=== PATIENT | female | born 1940 | race Caucasian/White ===

== ENCOUNTER 2020-04-16 21:35 | Inpatient (IN) ==
[2020-04-16 22:01] LABS: Basophils # 0.1 K/mcL (0.0-0.2); Basophils % 0.4 %; Hematocrit 43.9 % (35.3-44.9); Hemoglobin 14.1 g/dL (11.5-15.4); Lymphocytes % 4.8 %; Mean Corpuscular HGB Conc 32.1 g/dL (31.6-35.5); Mean Corpuscular Hemoglobin 30.5 pg (28.0-33.3); Mean Corpuscular Volume 94.8 fL (83.0-100.0); Mean Platelet Volume 9.6 fL (9.4-12.4); Monocytes # 1.8 K/mcL (0.0-1.3); Monocytes % 8.4 %; Neutrophils # 17.8 K/mcL (1.6-8.9); Platelet Count 316 K/mcL (140-400); Red Blood Count 4.63 M/mcL (3.82-4.97); Red Cell Distribution Width 13.2 % (11.5-14.5); Segmented Neutrophils % 85.4 %; White Blood Count 20.8 K/mcL (4.3-11.1)
[2020-04-16 22:08] LABS: INR 1.2; Prothrombin Time 14.2 Seconds (9.4-12.1)
[2020-04-16 22:11] LABS: Activated Partial Thrombo Time 29.2 Seconds (26.0-36.0)
[2020-04-16 22:17] LABS: Alanine Aminotransferase 10 Units/L (7-52); Albumin 3.7 g/dL (3.5-5.7); Albumin/Globulin Ratio 0.9 (1.1-2.2); Alkaline Phosphatase 83 Units/L (34-104); Aspartate Amino Transferase 14 Units/L (13-39); BUN/Creatinine Ratio 19 (6-26); Blood Urea Nitrogen 20 mg/dL (8-23); Calcium 9.1 mg/dL (8.6-10.3); Carbon Dioxide 28 mEq/L (23-29); Chloride 104 mEq/L (98-107); Globulin 3.9 g/dL (2.4-3.5); Glucose 115 mg/dL (70-105); Osmolality,Calculated 296 (280-300); Potassium 3.5 mEq/L (3.5-5.1); Sodium 141 mEq/L (136-145); Total Protein 7.6 g/dL (6.4-8.9); eGFR For African Americans > 60 (> 60); eGFR For Non-African Americans 50 (> 60)
[2020-04-16 23:01] LABS: Bilirubin,Urine Negative (Negative); Blood,Urine Small (Negative); Clarity,Urine Cloudy (Clear); Color,Urine Yellow (Yellow); Glucose,Urine (UA) Normal (Normal); Ketones,Urine Trace mg/dL (Negative); Leukocyte Esterase,Urine Large (Negative); Nitrite,Urine Positive (Negative); PH,Urine 6.5 pH Units (5.0-8.0); Protein,Urine 100 mg/dL (Neg-Trace); Specific Gravity,Urine 1.025 (1.010-1.025); Urobilinogen,Urine Normal (Normal)
[2020-04-16 23:08] LABS: Bacteria,Urine Many per hpf (None-Few); WBC,Urine TNTC per hpf (0-3)
[2020-04-16 23:10] LABS: Mucus,Urine Few per lpf (None-Few); Squamous Epithelial Cell,Urine Moderate per hpf (None-Few)
[2020-04-17] MEDS ORDERED: Sennosides/Docusate Sodium TABLET PO PRN (00:48)
[2020-04-17] MEDS ORDERED: *HR* LORazepam 0.5 MG TABLET PO PRN (00:48)
[2020-04-17] MEDS ORDERED: Naloxone 0.4 MG/ML INJ IVP PRN (00:48)
[2020-04-17] MEDS ORDERED: Ondansetron ODT 4 MG TAB.RAPDIS SL PRN (00:48)
[2020-04-17] MEDS: Acetaminophen 325 MG TABLET PO PRN ×3 (01:28→22:59)
[2020-04-17] MEDS: 0.9 % Sodium Chloride 1,000 ML IVC SCH ×2 (01:36→09:43)
[2020-04-17 06:13] LABS: Basophils # 0.1 K/mcL (0.0-0.2); Basophils % 0.3 %; Eosinophils % 0.1 %; Hematocrit 38.7 % (35.3-44.9); Hemoglobin 12.3 g/dL (11.5-15.4); Immature Granulocytes % 0.9 % (0-4); Lymphocytes # 1.6 K/mcL (0.6-4.6); Mean Corpuscular HGB Conc 31.8 g/dL (31.6-35.5); Mean Corpuscular Volume 94.4 fL (83.0-100.0); Mean Platelet Volume 10.6 fL (9.4-12.4); Monocytes % 7.6 %; Platelet Count 272 K/mcL (140-400); Red Cell Distribution Width 13.2 % (11.5-14.5); Segmented Neutrophils % 83.1 %; White Blood Count 20.3 K/mcL (4.3-11.1)
[2020-04-17 06:18] LABS: Monocytes # 1.5 K/mcL (0.0-1.3); Neutrophils # 16.9 K/mcL (1.6-8.9)
[2020-04-17 06:39] LABS: BUN/Creatinine Ratio 21 (6-26); Blood Urea Nitrogen 17 mg/dL (8-23); Calcium 8.2 mg/dL (8.6-10.3); Carbon Dioxide 29 mEq/L (23-29); Chloride 106 mEq/L (98-107); Glucose 113 mg/dL (70-105); Osmolality,Calculated 294 (280-300); Potassium 3.3 mEq/L (3.5-5.1); Sodium 141 mEq/L (136-145); eGFR For African Americans > 60 (> 60); eGFR For Non-African Americans > 60 (> 60)
[2020-04-17] MEDS: DilTIAZem CD (24hr) 180 MG CAP.ER.24H PO SCH (09:25)
[2020-04-17] MEDS: *HR* Rivaroxaban 10 MG TABLET PO SCH (09:25)
[2020-04-17] MEDS: Bumetanide 1 MG TABLET PO SCH ×2 (09:25→20:05)
[2020-04-17] MEDS: Gabapentin 300 MG CAPSULE PO SCH ×3 (09:28→20:05)
[2020-04-17] MEDS: cefTRIAXone 1,000 MG in 0.9 % Sodium Chloride Mini Bag 100 ML IVPB SCH (09:39)
[2020-04-18 07:12] LABS: Basophils # 0.1 K/mcL (0.0-0.2); Basophils % 0.4 %; Eosinophils # 0.1 K/mcL (0.0-0.6); Eosinophils % 0.3 %; Hematocrit 37.9 % (35.3-44.9); Hemoglobin 11.9 g/dL (11.5-15.4); Immature Granulocytes % 0.7 % (0-4); Lymphocytes # 2.2 K/mcL (0.6-4.6); Lymphocytes % 13.7 %; Mean Corpuscular HGB Conc 31.4 g/dL (31.6-35.5); Mean Corpuscular Hemoglobin 30.6 pg (28.0-33.3); Mean Corpuscular Volume 97.4 fL (83.0-100.0); Monocytes # 1.5 K/mcL (0.0-1.3); Monocytes % 9.2 %; Platelet Count 226 K/mcL (140-400); Red Blood Count 3.89 M/mcL (3.82-4.97); Red Cell Distribution Width 13.3 % (11.5-14.5); Segmented Neutrophils % 75.7 %; White Blood Count 16.1 K/mcL (4.3-11.1)
[2020-04-18 07:20] LABS: Neutrophils # 12.2 K/mcL (1.6-8.9)
[2020-04-18 07:22] LABS: BUN/Creatinine Ratio 19 (6-26); Blood Urea Nitrogen 14 mg/dL (8-23); Calcium 7.8 mg/dL (8.6-10.3); Carbon Dioxide 27 mEq/L (23-29); Chloride 103 mEq/L (98-107); Glucose 80 mg/dL (70-105); Osmolality,Calculated 285 (280-300); Sodium 138 mEq/L (136-145); eGFR For African Americans > 60 (> 60); eGFR For Non-African Americans > 60 (> 60)
[2020-04-18] MEDS: cefTRIAXone 1,000 MG in 0.9 % Sodium Chloride Mini Bag 100 ML IVPB SCH (08:08)
[2020-04-18] MEDS: Gabapentin 300 MG CAPSULE PO SCH ×3 (08:09→20:34)
[2020-04-18] MEDS: DilTIAZem CD (24hr) 180 MG CAP.ER.24H PO SCH (08:09)
[2020-04-18] MEDS: *HR* Rivaroxaban 10 MG TABLET PO SCH (08:09)
[2020-04-18] MEDS: Bumetanide 1 MG TABLET PO SCH ×2 (08:09→20:34)
[2020-04-18] MEDS: Potassium Chloride Elixir 20 MEQ/15 ML UDC PO SCH ×2 (12:55→20:34)
[2020-04-18] MEDS: Acetaminophen 325 MG TABLET PO PRN ×2 (15:53→21:43)
[2020-04-19 06:25] LABS: Basophils % 0.4 %; Eosinophils # 0.2 K/mcL (0.0-0.6); Eosinophils % 1.8 %; Hematocrit 36.8 % (35.3-44.9); Hemoglobin 11.8 g/dL (11.5-15.4); Immature Granulocytes % 0.7 % (0-4); Lymphocytes # 1.7 K/mcL (0.6-4.6); Lymphocytes % 15.6 %; Mean Corpuscular HGB Conc 32.1 g/dL (31.6-35.5); Mean Corpuscular Volume 93.6 fL (83.0-100.0); Monocytes # 1.4 K/mcL (0.0-1.3); Monocytes % 13.4 %; Neutrophils # 7.2 K/mcL (1.6-8.9); Platelet Count 246 K/mcL (140-400); Red Blood Count 3.93 M/mcL (3.82-4.97); Red Cell Distribution Width 13.2 % (11.5-14.5); Segmented Neutrophils % 68.1 %; White Blood Count 10.6 K/mcL (4.3-11.1)
[2020-04-19 06:43] LABS: BUN/Creatinine Ratio 22 (6-26); Blood Urea Nitrogen 16 mg/dL (8-23); Calcium 7.8 mg/dL (8.6-10.3); Carbon Dioxide 30 mEq/L (23-29); Chloride 105 mEq/L (98-107); Glucose 95 mg/dL (70-105); Osmolality,Calculated 295 (280-300); Potassium 3.5 mEq/L (3.5-5.1); Sodium 142 mEq/L (136-145); eGFR For African Americans > 60 (> 60); eGFR For Non-African Americans > 60 (> 60)
[2020-04-19] MEDS: Bumetanide 1 MG TABLET PO SCH ×3 (08:11→17:02)
[2020-04-19] MEDS: DilTIAZem CD (24hr) 180 MG CAP.ER.24H PO SCH (08:12)
[2020-04-19] MEDS: Gabapentin 300 MG CAPSULE PO SCH ×3 (08:12→20:03)
[2020-04-19] MEDS: *HR* Rivaroxaban 10 MG TABLET PO SCH (08:12)
[2020-04-19] MEDS: cefTRIAXone 1,000 MG in 0.9 % Sodium Chloride Mini Bag 100 ML IVPB SCH (08:12)
[2020-04-19] MEDS ORDERED: Potassium Chloride Elixir 20 MEQ/15 ML UDC PO SCH (09:00)
[2020-04-19] MEDS: Acetaminophen 325 MG TABLET PO PRN (19:55)
[2020-04-20 07:58] LABS: Basophils # 0.1 K/mcL (0.0-0.2); Basophils % 0.6 %; Eosinophils # 0.3 K/mcL (0.0-0.6); Eosinophils % 3.1 %; Hematocrit 36.6 % (35.3-44.9); Hemoglobin 11.7 g/dL (11.5-15.4); Immature Granulocytes % 0.7 % (0-4); Lymphocytes % 22.7 %; Mean Corpuscular Hemoglobin 30.2 pg (28.0-33.3); Mean Corpuscular Volume 94.6 fL (83.0-100.0); Mean Platelet Volume 10.7 fL (9.4-12.4); Monocytes # 1.1 K/mcL (0.0-1.3); Monocytes % 13.1 %; Neutrophils # 5.1 K/mcL (1.6-8.9); Platelet Count 284 K/mcL (140-400); Red Blood Count 3.87 M/mcL (3.82-4.97); Red Cell Distribution Width 13.3 % (11.5-14.5); Segmented Neutrophils % 59.8 %; White Blood Count 8.6 K/mcL (4.3-11.1)
[2020-04-20 08:10] LABS: BUN/Creatinine Ratio 25 (6-26); Blood Urea Nitrogen 17 mg/dL (8-23); Calcium 8.1 mg/dL (8.6-10.3); Carbon Dioxide 31 mEq/L (23-29); Chloride 103 mEq/L (98-107); Glucose 99 mg/dL (70-105); Osmolality,Calculated 292 (280-300); Potassium 3.5 mEq/L (3.5-5.1); Sodium 140 mEq/L (136-145); eGFR For African Americans > 60 (> 60); eGFR For Non-African Americans > 60 (> 60)
[2020-04-20 09:40] VITALS: BP 115/89
[2020-04-20] MEDS: *HR* Rivaroxaban 10 MG TABLET PO SCH (09:56)
[2020-04-20] MEDS: cefTRIAXone 1,000 MG in 0.9 % Sodium Chloride Mini Bag 100 ML IVPB SCH (09:57)
[2020-04-20] MEDS: Gabapentin 300 MG CAPSULE PO SCH ×2 (09:59→14:42)
[2020-04-20] MEDS: DilTIAZem CD (24hr) 180 MG CAP.ER.24H PO SCH (09:59)
[2020-04-20] MEDS: Bumetanide 1 MG TABLET PO SCH ×2 (10:00→17:46)
== END 2020-04-20 18:23 | DRG 871 ==
LOC: EMEROOPIK 21:35 → INPPIK 04-17 00:28
PROVIDERS: ADMIT Family Medicine; ATTEND Family Medicine

== ENCOUNTER 2020-04-20 13:34 | Inpatient (IN) ==
[2020-04-20] MEDS ORDERED: Sennosides/Docusate Sodium TABLET PO PRN (17:47)
[2020-04-20] MEDS ORDERED: *HR* LORazepam 0.5 MG TABLET PO PRN (17:47)
[2020-04-20] MEDS: Cefdinir 300 MG CAPSULE PO SCH (19:46)
[2020-04-20] MEDS: Bumetanide 1 MG TABLET PO SCH (19:46)
[2020-04-20] MEDS: Gabapentin 300 MG CAPSULE PO SCH (19:46)
[2020-04-21 06:45] LABS: Basophils # 0.1 K/mcL (0.0-0.2); Eosinophils # 0.3 K/mcL (0.0-0.6); Eosinophils % 3.8 %; Hematocrit 36.7 % (35.3-44.9); Hemoglobin 11.8 g/dL (11.5-15.4); Lymphocytes # 1.8 K/mcL (0.6-4.6); Lymphocytes % 25.9 %; Mean Corpuscular HGB Conc 32.2 g/dL (31.6-35.5); Mean Corpuscular Hemoglobin 30.2 pg (28.0-33.3); Mean Corpuscular Volume 93.9 fL (83.0-100.0); Mean Platelet Volume 10.3 fL (9.4-12.4); Monocytes # 0.8 K/mcL (0.0-1.3); Monocytes % 11.9 %; Platelet Count 315 K/mcL (140-400); Red Blood Count 3.91 M/mcL (3.82-4.97); Red Cell Distribution Width 13.3 % (11.5-14.5); Segmented Neutrophils % 56.4 %; White Blood Count 7.1 K/mcL (4.3-11.1)
[2020-04-21 07:14] LABS: BUN/Creatinine Ratio 31 (6-26); Blood Urea Nitrogen 22 mg/dL (8-23); Calcium 8.3 mg/dL (8.6-10.3); Carbon Dioxide 33 mEq/L (23-29); Chloride 102 mEq/L (98-107); Glucose 92 mg/dL (70-105); Osmolality,Calculated 295 (280-300); Potassium 3.5 mEq/L (3.5-5.1); Sodium 141 mEq/L (136-145); eGFR For African Americans > 60 (> 60); eGFR For Non-African Americans > 60 (> 60)
[2020-04-21] MEDS: Gabapentin 300 MG CAPSULE PO SCH ×3 (09:22→21:31)
[2020-04-21] MEDS: Bumetanide 1 MG TABLET PO SCH ×2 (09:22→21:31)
[2020-04-21] MEDS: DilTIAZem CD (24hr) 180 MG CAP.ER.24H PO SCH (09:23)
[2020-04-21] MEDS: *HR* Rivaroxaban 10 MG TABLET PO SCH (09:23)
[2020-04-21] MEDS: Cefdinir 300 MG CAPSULE PO SCH ×2 (09:23→21:31)
[2020-04-22] MEDS: Cefdinir 300 MG CAPSULE PO SCH ×2 (08:04→21:06)
[2020-04-22] MEDS: *HR* Rivaroxaban 10 MG TABLET PO SCH (08:04)
[2020-04-22] MEDS: DilTIAZem CD (24hr) 180 MG CAP.ER.24H PO SCH (08:04)
[2020-04-22] MEDS: Gabapentin 300 MG CAPSULE PO SCH ×3 (08:05→21:06)
[2020-04-22] MEDS: Bumetanide 1 MG TABLET PO SCH ×2 (08:05→21:07)
[2020-04-23] MEDS: Cefdinir 300 MG CAPSULE PO SCH ×2 (08:59→20:17)
[2020-04-23] MEDS: *HR* Rivaroxaban 10 MG TABLET PO SCH (08:59)
[2020-04-23] MEDS: Bumetanide 1 MG TABLET PO SCH (08:59)
[2020-04-23] MEDS: DilTIAZem CD (24hr) 180 MG CAP.ER.24H PO SCH (08:59)
[2020-04-23] MEDS: Gabapentin 300 MG CAPSULE PO SCH ×3 (08:59→20:17)
[2020-04-24] MEDS: DilTIAZem CD (24hr) 180 MG CAP.ER.24H PO SCH (09:01)
[2020-04-24] MEDS: Gabapentin 300 MG CAPSULE PO SCH ×3 (09:01→20:00)
[2020-04-24] MEDS: *HR* Rivaroxaban 10 MG TABLET PO SCH (09:02)
[2020-04-24] MEDS: Bumetanide 1 MG TABLET PO SCH (09:02)
[2020-04-25] MEDS: *HR* Rivaroxaban 10 MG TABLET PO SCH (09:16)
[2020-04-25] MEDS: DilTIAZem CD (24hr) 180 MG CAP.ER.24H PO SCH (09:16)
[2020-04-25] MEDS: Bumetanide 1 MG TABLET PO SCH (09:16)
[2020-04-25] MEDS: Gabapentin 300 MG CAPSULE PO SCH ×3 (09:16→20:28)
[2020-04-25] MEDS ORDERED: Acetaminophen 325 MG TABLET PO PRN (14:07)
[2020-04-26] MEDS: DilTIAZem CD (24hr) 180 MG CAP.ER.24H PO SCH (09:06)
[2020-04-26] MEDS: *HR* Rivaroxaban 10 MG TABLET PO SCH (09:07)
[2020-04-26] MEDS: Gabapentin 300 MG CAPSULE PO SCH ×3 (09:07→20:07)
[2020-04-26] MEDS: Bumetanide 1 MG TABLET PO SCH (09:07)
[2020-04-27 06:42] LABS: Hematocrit 36.5 % (35.3-44.9); Hemoglobin 11.5 g/dL (11.5-15.4); Mean Corpuscular HGB Conc 31.5 g/dL (31.6-35.5); Mean Corpuscular Hemoglobin 30.3 pg (28.0-33.3); Mean Corpuscular Volume 96.1 fL (83.0-100.0); Mean Platelet Volume 10.8 fL (9.4-12.4); Platelet Count 453 K/mcL (140-400); Red Cell Distribution Width 13.2 % (11.5-14.5); White Blood Count 7.5 K/mcL (4.3-11.1)
[2020-04-27 07:01] LABS: BUN/Creatinine Ratio 41 (6-26); Blood Urea Nitrogen 30 mg/dL (8-23); Calcium 8.6 mg/dL (8.6-10.3); Carbon Dioxide 31 mEq/L (23-29); Chloride 103 mEq/L (98-107); Glucose 78 mg/dL (70-105); Osmolality,Calculated 297 (280-300); Potassium 3.6 mEq/L (3.5-5.1); Sodium 141 mEq/L (136-145); eGFR For African Americans > 60 (> 60); eGFR For Non-African Americans > 60 (> 60)
[2020-04-27] MEDS: Gabapentin 300 MG CAPSULE PO SCH ×3 (09:33→21:17)
[2020-04-27] MEDS: DilTIAZem CD (24hr) 180 MG CAP.ER.24H PO SCH (09:34)
[2020-04-27] MEDS: *HR* Rivaroxaban 10 MG TABLET PO SCH (09:34)
[2020-04-27] MEDS: Bumetanide 1 MG TABLET PO SCH (09:34)
[2020-04-28] MEDS: *HR* Rivaroxaban 10 MG TABLET PO SCH (09:51)
[2020-04-28] MEDS: DilTIAZem CD (24hr) 180 MG CAP.ER.24H PO SCH (09:51)
[2020-04-28] MEDS: Gabapentin 300 MG CAPSULE PO SCH ×3 (09:51→20:14)
[2020-04-28] MEDS: Bumetanide 1 MG TABLET PO SCH (09:51)
[2020-04-29] MEDS: DilTIAZem CD (24hr) 180 MG CAP.ER.24H PO SCH (08:58)
[2020-04-29] MEDS: Bumetanide 1 MG TABLET PO SCH (08:58)
[2020-04-29] MEDS: Gabapentin 300 MG CAPSULE PO SCH ×3 (08:59→20:24)
[2020-04-29] MEDS: *HR* Rivaroxaban 10 MG TABLET PO SCH (08:59)
[2020-04-29] MEDS: DiphenhydraMINE CREAM 28.4 GM TUBE TP PRN (21:08)
[2020-04-30] MEDS: Bumetanide 1 MG TABLET PO SCH (08:53)
[2020-04-30] MEDS: DilTIAZem CD (24hr) 180 MG CAP.ER.24H PO SCH (08:53)
[2020-04-30] MEDS: *HR* Rivaroxaban 10 MG TABLET PO SCH (08:53)
[2020-04-30] MEDS: Gabapentin 300 MG CAPSULE PO SCH ×3 (08:54→21:45)
[2020-04-30] MEDS: DiphenhydraMINE CREAM 28.4 GM TUBE TP PRN (21:50)
[2020-05-01] MEDS: Gabapentin 300 MG CAPSULE PO SCH ×3 (07:52→23:13)
[2020-05-01] MEDS: Bumetanide 1 MG TABLET PO SCH (07:52)
[2020-05-01] MEDS: *HR* Rivaroxaban 10 MG TABLET PO SCH (07:52)
[2020-05-01] MEDS: DilTIAZem CD (24hr) 180 MG CAP.ER.24H PO SCH (07:52)
[2020-05-02] MEDS: Bumetanide 1 MG TABLET PO SCH (08:29)
[2020-05-02] MEDS: *HR* Rivaroxaban 10 MG TABLET PO SCH (08:30)
[2020-05-02] MEDS: Gabapentin 300 MG CAPSULE PO SCH ×3 (08:30→21:04)
[2020-05-02] MEDS: DilTIAZem CD (24hr) 180 MG CAP.ER.24H PO SCH (08:30)
[2020-05-02 09:22] LABS: Basophils % 1.3 %; Hematocrit 41.4 % (35.3-44.9); Hemoglobin 12.9 g/dL (11.5-15.4); Immature Granulocytes % 0.7 % (0-4); Lymphocytes % 33.3 %; Mean Corpuscular HGB Conc 31.2 g/dL (31.6-35.5); Mean Corpuscular Hemoglobin 30.1 pg (28.0-33.3); Mean Corpuscular Volume 96.5 fL (83.0-100.0); Monocytes % 5.6 %; Neutrophils # 3.9 K/mcL (1.6-8.9); Platelet Count 506 K/mcL (140-400); Red Blood Count 4.29 M/mcL (3.82-4.97); Red Cell Distribution Width 13.5 % (11.5-14.5); Segmented Neutrophils % 56.1 %; White Blood Count 6.9 K/mcL (4.3-11.1)
[2020-05-02 09:23] LABS: Basophils # 0.1 K/mcL (0.0-0.2); Eosinophils # 0.2 K/mcL (0.0-0.6); Lymphocytes # 2.3 K/mcL (0.6-4.6); Monocytes # 0.4 K/mcL (0.0-1.3)
[2020-05-02 09:40] LABS: BUN/Creatinine Ratio 41 (6-26); Blood Urea Nitrogen 36 mg/dL (8-23); Calcium 9.3 mg/dL (8.6-10.3); Carbon Dioxide 33 mEq/L (23-29); Chloride 103 mEq/L (98-107); Glucose 129 mg/dL (70-105); Osmolality,Calculated 306 (280-300); Potassium 3.6 mEq/L (3.5-5.1); Sodium 143 mEq/L (136-145); eGFR For African Americans > 60 (> 60); eGFR For Non-African Americans > 60 (> 60)
[2020-05-03 07:07] VITALS: BP 104/70
[2020-05-03] MEDS: *HR* Rivaroxaban 10 MG TABLET PO SCH (08:33)
[2020-05-03] MEDS: Bumetanide 1 MG TABLET PO SCH (08:33)
[2020-05-03] MEDS: DilTIAZem CD (24hr) 180 MG CAP.ER.24H PO SCH (08:33)
[2020-05-03] MEDS: Gabapentin 300 MG CAPSULE PO SCH ×2 (08:33→12:14)
== END 2020-05-03 13:45 | disposition home health service (06) | DRG 690 ==
LOC: INPPIK 18:23
PROVIDERS: ADMIT Family Medicine; ATTEND Family Medicine

== ENCOUNTER 2020-05-07 14:50 | Observation (INO) ==
[2020-05-07] MEDS ORDERED: cefTRIAXone 2,000 MG in 0.9 % Sodium Chloride Mini Bag 100 ML IVPB ONE (15:11)
[2020-05-07 15:20] LABS: Bilirubin,Urine Negative (Negative); Blood,Urine Small (Negative); Clarity,Urine Cloudy (Clear); Color,Urine Yellow (Yellow); Glucose,Urine (UA) Normal (Normal); Ketones,Urine Negative (Negative); Leukocyte Esterase,Urine Large (Negative); Nitrite,Urine Positive (Negative); Protein,Urine 100 mg/dL (Neg-Trace); Urobilinogen,Urine Normal (Normal)
[2020-05-07] MEDS ORDERED: Acetaminophen 325 MG TABLET PO ONE (15:21)
[2020-05-07 15:23] LABS: Basophils # 0.1 K/mcL (0.0-0.2); Basophils % 0.5 %; Eosinophils # 0.1 K/mcL (0.0-0.6); Eosinophils % 0.5 %; Hematocrit 40.5 % (35.3-44.9); Hemoglobin 12.8 g/dL (11.5-15.4); Immature Granulocytes % 0.5 % (0-4); Lymphocytes # 2.2 K/mcL (0.6-4.6); Lymphocytes % 14.3 %; Mean Corpuscular HGB Conc 31.6 g/dL (31.6-35.5); Mean Corpuscular Hemoglobin 30.3 pg (28.0-33.3); Mean Platelet Volume 10.1 fL (9.4-12.4); Monocytes # 1.7 K/mcL (0.0-1.3); Monocytes % 11.2 %; Neutrophils # 11.3 K/mcL (1.6-8.9); Platelet Count 347 K/mcL (140-400); Red Blood Count 4.22 M/mcL (3.82-4.97); Red Cell Distribution Width 13.8 % (11.5-14.5); White Blood Count 15.5 K/mcL (4.3-11.1)
[2020-05-07 15:33] LABS: Bacteria,Urine Few per hpf (None-Few); Squamous Epithelial Cell,Urine Few per hpf (None-Few); WBC,Urine TNTC per hpf (0-3)
[2020-05-07] MEDS: 0.9 % Sodium Chloride 1,000 ML IVC SCH ×2 (15:34→23:41)
[2020-05-07 15:36] LABS: INR 1.3; Prothrombin Time 14.5 Seconds (9.4-12.1)
[2020-05-07 15:42] LABS: Troponin I 0.03 ng/mL (< 0.04)
[2020-05-07 15:43] LABS: Alanine Aminotransferase 10 Units/L (7-52); Albumin 3.6 g/dL (3.5-5.7); Albumin/Globulin Ratio 0.9 (1.1-2.2); Alkaline Phosphatase 79 Units/L (34-104); Aspartate Amino Transferase 16 Units/L (13-39); BUN/Creatinine Ratio 24 (6-26); Bilirubin,Total 1.3 mg/dL (0.3-1.0); Blood Urea Nitrogen 23 mg/dL (8-23); Calcium 9.3 mg/dL (8.6-10.3); Carbon Dioxide 31 mEq/L (23-29); Chloride 100 mEq/L (98-107); Globulin 4.2 g/dL (2.4-3.5); Glucose 126 mg/dL (70-105); Osmolality,Calculated 293 (280-300); Phosphorous 2.6 mg/dL (2.7-4.5); Potassium 3.7 mEq/L (3.5-5.1); Sodium 139 mEq/L (136-145); Total Protein 7.8 g/dL (6.4-8.9); eGFR For African Americans > 60 (> 60); eGFR For Non-African Americans 56 (> 60)
[2020-05-07] MEDS ORDERED: Sennosides/Docusate Sodium TABLET PO PRN (17:25)
[2020-05-07] MEDS ORDERED: *HR* LORazepam 0.5 MG TABLET PO PRN (17:25)
[2020-05-07] MEDS ORDERED: Acetaminophen 325 MG TABLET PO PRN (17:26)
[2020-05-07] MEDS ORDERED: MOM Conc 10 ML UD.LIQ PO PRN (17:26)
[2020-05-07] MEDS ORDERED: Mag Hydrox/Al Hydrox/Simeth 30 ML UDC PO PRN (17:26)
[2020-05-07] MEDS ORDERED: Ondansetron 4 MG/2 ML VIAL IVP PRN (17:26)
[2020-05-07] MEDS ORDERED: Naloxone 0.4 MG/ML INJ IVP PRN (17:26)
[2020-05-07] MEDS: Gabapentin 300 MG CAPSULE PO SCH (21:07)
[2020-05-08 06:47] VITALS: BP 115/70
[2020-05-08 07:32] LABS: Basophils # 0.1 K/mcL (0.0-0.2); Basophils % 0.5 %; Eosinophils # 0.2 K/mcL (0.0-0.6); Eosinophils % 2.1 %; Hematocrit 35.5 % (35.3-44.9); Hemoglobin 11.1 g/dL (11.5-15.4); Immature Granulocytes % 0.4 % (0-4); Lymphocytes # 2.2 K/mcL (0.6-4.6); Lymphocytes % 23.1 %; Mean Corpuscular HGB Conc 31.3 g/dL (31.6-35.5); Mean Corpuscular Hemoglobin 30.2 pg (28.0-33.3); Mean Corpuscular Volume 96.5 fL (83.0-100.0); Mean Platelet Volume 10.3 fL (9.4-12.4); Monocytes # 1.1 K/mcL (0.0-1.3); Monocytes % 11.4 %; Platelet Count 278 K/mcL (140-400); Red Blood Count 3.68 M/mcL (3.82-4.97); Red Cell Distribution Width 13.6 % (11.5-14.5); Segmented Neutrophils % 62.5 %; White Blood Count 9.6 K/mcL (4.3-11.1)
[2020-05-08 07:38] LABS: BUN/Creatinine Ratio 25 (6-26); Blood Urea Nitrogen 18 mg/dL (8-23); Calcium 8.1 mg/dL (8.6-10.3); Carbon Dioxide 28 mEq/L (23-29); Chloride 108 mEq/L (98-107); Glucose 88 mg/dL (70-105); Osmolality,Calculated 295 (280-300); Potassium 3.5 mEq/L (3.5-5.1); Sodium 142 mEq/L (136-145); eGFR For African Americans > 60 (> 60); eGFR For Non-African Americans > 60 (> 60)
[2020-05-08] MEDS: Gabapentin 300 MG CAPSULE PO SCH ×2 (08:30→15:44)
[2020-05-08] MEDS: 0.9 % Sodium Chloride 1,000 ML IVC SCH (08:31)
[2020-05-08] MEDS ORDERED: *HR* Rivaroxaban 10 MG TABLET PO SCH (09:00)
[2020-05-08] MEDS ORDERED: cefTRIAXone 2,000 MG in Water for inj. (sterile) 20 ML IVP SCH (09:00)
[2020-05-08] MEDS ORDERED: DilTIAZem CD (24hr) 180 MG CAP.ER.24H PO SCH (09:00)
== END 2020-05-08 16:41 | disposition other institution (70) ==
LOC: EMEROOPIK 14:50 → INPPIK 14:50
PROVIDERS: ADMIT Family Medicine; ATTEND Family Medicine

== ENCOUNTER 2020-05-08 15:00 | Inpatient (IN) ==
[2020-05-08] MEDS ORDERED: Sennosides/Docusate Sodium TABLET PO PRN (16:48)
[2020-05-08] MEDS ORDERED: Ondansetron 4 MG/2 ML VIAL IVP PRN (16:58)
[2020-05-08] MEDS ORDERED: FLU Vac QV 20-21 (6Month+)/PF 0.5 ML SYRINGE IM ONE (17:14)
[2020-05-08] MEDS: Gabapentin 300 MG CAPSULE PO SCH (19:55)
[2020-05-08] MEDS: Acetaminophen 325 MG TABLET PO PRN (19:55)
[2020-05-09 06:39] LABS: Basophils # 0.1 K/mcL (0.0-0.2); Basophils % 0.7 %; Eosinophils # 0.3 K/mcL (0.0-0.6); Eosinophils % 3.9 %; Hematocrit 34.2 % (35.3-44.9); Hemoglobin 10.5 g/dL (11.5-15.4); Immature Granulocytes % 0.5 % (0-4); Lymphocytes # 2.8 K/mcL (0.6-4.6); Lymphocytes % 31.8 %; Mean Corpuscular HGB Conc 30.7 g/dL (31.6-35.5); Mean Corpuscular Hemoglobin 29.9 pg (28.0-33.3); Mean Corpuscular Volume 97.4 fL (83.0-100.0); Monocytes # 0.9 K/mcL (0.0-1.3); Monocytes % 10.3 %; Neutrophils # 4.7 K/mcL (1.6-8.9); Platelet Count 279 K/mcL (140-400); Red Blood Count 3.51 M/mcL (3.82-4.97); Red Cell Distribution Width 13.7 % (11.5-14.5); Segmented Neutrophils % 52.8 %; White Blood Count 8.8 K/mcL (4.3-11.1)
[2020-05-09 06:55] LABS: BUN/Creatinine Ratio 25 (6-26); Blood Urea Nitrogen 23 mg/dL (8-23); Calcium 8.1 mg/dL (8.6-10.3); Carbon Dioxide 29 mEq/L (23-29); Chloride 107 mEq/L (98-107); Glucose 86 mg/dL (70-105); Osmolality,Calculated 297 (280-300); Potassium 3.6 mEq/L (3.5-5.1); Sodium 142 mEq/L (136-145); eGFR For African Americans > 60 (> 60); eGFR For Non-African Americans 59 (> 60)
[2020-05-09] MEDS ORDERED: CefTRIAXone 1,000 MG VIAL IVP SCH (09:00)
[2020-05-09] MEDS: Gabapentin 300 MG CAPSULE PO SCH ×3 (09:24→21:13)
[2020-05-09] MEDS: cefTRIAXone 2,000 MG in 0.9 % Sodium Chloride Mini Bag 100 ML IVPB SCH (09:24)
[2020-05-09] MEDS: *HR* Rivaroxaban 10 MG TABLET PO SCH (09:24)
[2020-05-09] MEDS: DilTIAZem CD (24hr) 180 MG CAP.ER.24H PO SCH (09:24)
[2020-05-09] MEDS: Acetaminophen 325 MG TABLET PO PRN (21:13)
[2020-05-10] MEDS: Gabapentin 300 MG CAPSULE PO SCH ×3 (08:14→21:33)
[2020-05-10] MEDS: DilTIAZem CD (24hr) 180 MG CAP.ER.24H PO SCH (08:14)
[2020-05-10] MEDS: cefTRIAXone 2,000 MG in 0.9 % Sodium Chloride Mini Bag 100 ML IVPB SCH (08:15)
[2020-05-10] MEDS: *HR* Rivaroxaban 10 MG TABLET PO SCH (08:15)
[2020-05-11 07:22] LABS: Hematocrit 36.9 % (35.3-44.9); Hemoglobin 11.4 g/dL (11.5-15.4)
[2020-05-11] MEDS: Gabapentin 300 MG CAPSULE PO SCH ×3 (08:51→21:24)
[2020-05-11] MEDS: *HR* Rivaroxaban 10 MG TABLET PO SCH (08:51)
[2020-05-11] MEDS: cefTRIAXone 2,000 MG in 0.9 % Sodium Chloride Mini Bag 100 ML IVPB SCH (08:51)
[2020-05-11] MEDS: DilTIAZem CD (24hr) 180 MG CAP.ER.24H PO SCH (08:51)
[2020-05-11 09:03] LABS: % Iron Saturation 24 % (15-50); Iron 47 mcg/dL (50-170); Transferrin 139 mg/dL (203-362)
[2020-05-11 09:22] LABS: Ferritin 190 ng/mL (10-120)
[2020-05-11 09:24] LABS: Folate 6.4 ng/mL (3.0-16.0)
[2020-05-11] MEDS: Acetaminophen 325 MG TABLET PO PRN (21:23)
[2020-05-11] MEDS: *HR* LORazepam 0.5 MG TABLET PO PRN (21:24)
[2020-05-12] MEDS: Gabapentin 300 MG CAPSULE PO SCH ×3 (08:32→21:28)
[2020-05-12] MEDS: Acetaminophen 325 MG TABLET PO PRN ×2 (08:32→13:07)
[2020-05-12] MEDS: DilTIAZem CD (24hr) 180 MG CAP.ER.24H PO SCH (08:32)
[2020-05-12] MEDS: *HR* Rivaroxaban 10 MG TABLET PO SCH (08:33)
[2020-05-12] MEDS: cefTRIAXone 2,000 MG in 0.9 % Sodium Chloride Mini Bag 100 ML IVPB SCH ×2 (08:35→09:25)
[2020-05-12] MEDS: *HR* LORazepam 0.5 MG TABLET PO PRN (21:28)
[2020-05-13] MEDS: DilTIAZem CD (24hr) 180 MG CAP.ER.24H PO SCH (08:37)
[2020-05-13] MEDS: *HR* Rivaroxaban 10 MG TABLET PO SCH (08:37)
[2020-05-13] MEDS: Gabapentin 300 MG CAPSULE PO SCH ×3 (08:37→21:31)
[2020-05-14] MEDS: *HR* Rivaroxaban 10 MG TABLET PO SCH (07:47)
[2020-05-14] MEDS: DilTIAZem CD (24hr) 180 MG CAP.ER.24H PO SCH (07:48)
[2020-05-14] MEDS: Gabapentin 300 MG CAPSULE PO SCH ×3 (07:49→20:49)
[2020-05-14] MEDS: Acetaminophen 325 MG TABLET PO PRN ×2 (10:48→20:50)
[2020-05-15] MEDS: DilTIAZem CD (24hr) 180 MG CAP.ER.24H PO SCH (08:18)
[2020-05-15] MEDS: Gabapentin 300 MG CAPSULE PO SCH ×3 (08:18→21:14)
[2020-05-15] MEDS: *HR* Rivaroxaban 10 MG TABLET PO SCH (08:18)
[2020-05-16 07:04] VITALS: BP 123/67
[2020-05-16] MEDS: *HR* Rivaroxaban 10 MG TABLET PO SCH (08:43)
[2020-05-16] MEDS: Gabapentin 300 MG CAPSULE PO SCH (08:43)
[2020-05-16] MEDS: DilTIAZem CD (24hr) 180 MG CAP.ER.24H PO SCH (08:43)
== END 2020-05-16 12:52 | disposition home health service (06) | DRG 945 ==
LOC: INPPIK 16:54
PROVIDERS: ADMIT Family Medicine; ATTEND Family Medicine

== ENCOUNTER 2021-11-18 07:53 | Inpatient (IN) ==
[2021-11-18] MEDS ORDERED: Ondansetron 4 MG/2 ML VIAL IVP ONE ×2 (08:04→09:36)
[2021-11-18] MEDS ORDERED: Morphine Sulfate 2 MG/ML SYRINGE IVP ONE ×2 (08:04→09:36)
[2021-11-18 08:19] LABS: Basophils # 0.1 K/mcL (0.0-0.2); Basophils % 0.4 %; Hematocrit 45.6 % (35.3-44.9); Hemoglobin 14.3 g/dL (11.5-15.4); Immature Granulocytes % 0.3 % (0-4); Lymphocytes % 8.6 %; Mean Corpuscular HGB Conc 31.4 g/dL (31.6-35.5); Mean Corpuscular Hemoglobin 28.9 pg (28.0-33.3); Mean Corpuscular Volume 92.1 fL (83.0-100.0); Mean Platelet Volume 9.6 fL (9.4-12.4); Monocytes # 0.8 K/mcL (0.0-1.3); Monocytes % 6.6 %; Neutrophils # 10.2 K/mcL (1.6-8.9); Platelet Count 291 K/mcL (140-400); Red Blood Count 4.95 M/mcL (3.82-4.97); Red Cell Distribution Width 13.6 % (11.5-14.5); Segmented Neutrophils % 84.1 %; White Blood Count 12.1 K/mcL (4.3-11.1)
[2021-11-18 08:27] LABS: Bilirubin,Urine Negative (Negative); Blood,Urine Trace-intact (Negative); Clarity,Urine Clear (Clear); Color,Urine Yellow (Yellow); Glucose,Urine (UA) Normal (Normal); Ketones,Urine 15 mg/dL (Negative); Leukocyte Esterase,Urine Small (Negative); Nitrite,Urine Negative (Negative); PH,Urine 7.5 pH Units (5.0-8.0); Protein,Urine Trace mg/dL (Neg-Trace); Urobilinogen,Urine Normal (Normal)
[2021-11-18 08:33] LABS: Albumin 3.7 g/dL (3.5-5.7); Albumin/Globulin Ratio 0.9 (1.1-2.2); Bilirubin,Direct 0.2 mg/dL (0.0-0.2); Bilirubin,Indirect 0.7 mg/dL (0.0-1.0); Bilirubin,Total 0.9 mg/dL (0.3-1.0); Calcium 9.1 mg/dL (8.6-10.3); Globulin 4.3 g/dL (2.4-3.5); Potassium 3.6 mEq/L (3.5-5.1)
[2021-11-18 08:54] LABS: Bacteria,Urine Many per hpf (None-Few)
[2021-11-18] MEDS ORDERED: cefTRIAXone 2,000 MG in 0.9 % Sodium Chloride Mini Bag 100 ML IVPB ONE (09:16)
[2021-11-18] MEDS: 0.9 % Sodium Chloride 1,000 ML IVC SCH ×2 (09:54→18:27)
[2021-11-18] MEDS ORDERED: *HR* HYDROmorphone (PF) 1 MG/ML SYRINGE IVP PRN (11:30)
[2021-11-18] MEDS ORDERED: Ondansetron 4 MG/2 ML VIAL IVP PRN ×2 (13:30→21:46)
[2021-11-18] MEDS ORDERED: Acetaminophen 325 MG TABLET PO PRN (21:46)
[2021-11-18] MEDS ORDERED: Naloxone 0.4 MG/ML INJ IVP PRN (21:46)
[2021-11-19] MEDS: 0.9 % Sodium Chloride 1,000 ML IVC SCH ×2 (02:55→10:18)
[2021-11-19 05:41] LABS: Hematocrit 38.7 % (35.3-44.9); Hemoglobin 12.5 g/dL (11.5-15.4); Mean Corpuscular HGB Conc 32.3 g/dL (31.6-35.5); Mean Corpuscular Volume 92.8 fL (83.0-100.0); Mean Platelet Volume 9.8 fL (9.4-12.4); Platelet Count 268 K/mcL (140-400); Red Blood Count 4.17 M/mcL (3.82-4.97); White Blood Count 21.6 K/mcL (4.3-11.1)
[2021-11-19 06:00] LABS: Potassium 3.7 mEq/L (3.5-5.1)
[2021-11-19] MEDS ORDERED: *HR* LORazepam 0.5 MG TABLET PO PRN (08:43)
[2021-11-19] MEDS ORDERED: Sennosides/Docusate Sodium TABLET PO PRN (09:00)
[2021-11-19] MEDS ORDERED: *HR* Rivaroxaban 10 MG TABLET PO SCH (09:00)
[2021-11-19] MEDS ORDERED: DilTIAZem CD (24hr) 180 MG CAP.ER.24H PO SCH (09:00)
[2021-11-19] MEDS ORDERED: cefTRIAXone 1,000 MG in 0.9 % Sodium Chloride Mini Bag 100 ML IVPB SCH (09:00)
[2021-11-19] MEDS: Acetaminophen 325 MG TABLET PO PRN ×2 (09:04→15:45)
[2021-11-19] MEDS: Bumetanide 1 MG TABLET PO SCH ×2 (09:05→09:14)
[2021-11-19] MEDS: Gabapentin 300 MG CAPSULE PO SCH ×4 (09:05→15:48)
[2021-11-19 11:50] VITALS: RESP 16
[2021-11-19 15:39] VITALS: BP 111/68; PULSE 85; TEMP 98.7; O2SAT 93
== END 2021-11-19 17:50 | disposition short-term general hospital (02) | DRG 690 ==
LOC: INPPIK 07:53 → EMEROOPIK 07:53 → INPPIK 11-19 00:15
PROVIDERS: ADMIT Internal Medicine; ATTEND Internal Medicine